=== PATIENT | female | born 1940 | race Caucasian/White ===

== ENCOUNTER 2018-02-14 05:42 | Day surgery (SDC) | payer MEDICARE, BC ==
[2018-02-14] VITALS (14 sets, daily range): BP systolic 112–140; BP diastolic 42–56
[~2018-02-14] VITALS: Ht 160 cm; Wt 72.8 kg
[2018-02-14] MEDS ORDERED: normal saline 1000ml 1,000 ML IV SCH (06:15)
[2018-02-14] MEDS ORDERED: LORazepam 0.5 MG tablet PO PRN (06:15)
[2018-02-14] MEDS ORDERED: diphenhydrAMINE 25mg capsule PO PRN (06:15)
[2018-02-14] MEDS ORDERED: occuvite PO (06:23)
[2018-02-14] MEDS ORDERED: CHOL100024 PO (06:23)
[2018-02-14] MEDS ORDERED: DONE5TAB7 PO (06:23)
[2018-02-14] MEDS ORDERED: CITA-278 PO (06:23)
[2018-02-14] MEDS ORDERED: gentle iron PO (06:23)
[2018-02-14] MEDS ORDERED: MULT-1085 PO (06:23)
[2018-02-14] MEDS ORDERED: TRAZ150T78 PO (06:23)
[2018-02-14] MEDS ORDERED: LORA-641 (06:23)
[2018-02-14] MEDS ORDERED: vitamin b12 PO (06:23)
[2018-02-14] MEDS ORDERED: ACET-1008 PO (06:23)
[2018-02-14] MEDS ORDERED: CLOP75TA15 PO (06:23)
[2018-02-14 06:47] LABS: BASOPHILS % (AUTO) 0.5 % (0-1); EOSINOPHILS # (AUTO) 0.2 X10'3 (0-0.9); EOSINOPHILS % (AUTO) 3.2 % (0-6); HEMATOCRIT 39.5 % (35.0-45.0); LYMPHOCYTES # (AUTO) 1.9 X10'3 (1.1-4.8); LYMPHOCYTES % (AUTO) 30.5 % (21-51); MEAN CORPUSCULAR HEMOGLOBIN 32.1 PG (27.0-31.0); MEAN CORPUSCULAR HGB CONC 32.9 % (33.0-36.5); MEAN CORPUSCULAR VOLUME 97.7 FL (78-98); MEAN PLATELET VOLUME 8.5 FL (7.4-10.4); MONOCYTES # (AUTO) 0.5 X10'3 (0-0.9); MONOCYTES % (AUTO) 8.1 % (2-12); NEUTROPHILS # (AUTO) 3.6 X10'3 (1.8-7.7); NEUTROPHILS % (AUTO) 57.7 % (42-75); PLATELET COUNT 262 X10'3 (140-440); RED BLOOD COUNT 4.05 X10'6 (4.20-5.60); RED CELL DISTRIBUTION WIDTH 14.2 % (11.5-14.5); WHITE BLOOD COUNT 6.3 X10'3 (4.5-11.0)
[2018-02-14 07:00] LABS: ALBUMIN 3.7 G/DL (3.4-5.0); ANION GAP 10 (8-16); BLOOD UREA NITROGEN 18 MG/DL (7-18); BUN/CREATININE RATIO 18.9 (6.6-38.0); CALCIUM 9.4 MG/DL (8.5-10.1); CHLORIDE 105 MMOL/L (99-107); CREATININE 0.95 MG/DL (0.40-0.90); GLUCOSE 85 MG/DL (70-104); POTASSIUM 3.8 MMOL/L (3.5-5.1); SODIUM 144 MMOL/L (135-145); TOTAL CARBON DIOXIDE 28.6 MMOL/L (24-32); eGFR 57 ML/MIN
[2018-02-14 07:02] LABS: INR 0.9 INR; PARTIAL THROMBOPLASTIN TIME 26 SECONDS (22-32); PROTHROMBIN TIME 9.3 SECONDS (9.0-12.0)
[2018-02-14] MEDS ORDERED: fentaNYL/PF 50MCG/1 ML 2ML syringe ONE (07:38)
[2018-02-14] MEDS ORDERED: midazolam 2 mg/2 ml injection ONE (07:38)
[2018-02-14] MEDS ORDERED: nitroGLYCERIN-Tridil 50MG/D5W 250 ML IV ONE (07:38)
[2018-02-14] MEDS ORDERED: LIDOcaine 1% (10mg/ml)w/preservative injection 20ml MDV ONE (07:39)
[2018-02-14] MEDS ORDERED: iohexol 350 MG/ML 50ML vial IV ONE (07:39)
[2018-02-14] MEDS ORDERED: heparin 1,000unit/ml 10ml vial 10 ML ONE (07:39)
[2018-02-14] MEDS ORDERED: iohexol 350MG/ML 100ml bottle IV ONE (07:39)
== END 2018-02-14 12:55 | disposition home or self-care (01) ==
LOC: SSTAY O 05:42
PROVIDERS: ATTEND Internal Medicine Cardiovascular Disease
DX: I25.10 Atherosclerotic heart disease of native coronary artery without angina pectoris (principal); E78.5 Hyperlipidemia, unspecified; I10 Essential (primary) hypertension; M47.819 Spondylosis without myelopathy or radiculopathy, site unspecified; M19.90 Unspecified osteoarthritis, unspecified site; F32.9 Major depressive disorder, single episode, unspecified; F41.8 Other specified anxiety disorders; Z86.69 Personal history of other diseases of the nervous system and sense organs; Z72.89 Other problems related to lifestyle; Z90.49 Acquired absence of other specified parts of digestive tract; Z88.6 Allergy status to analgesic agent; Z79.891 Long term (current) use of opiate analgesic; Z79.01 Long term (current) use of anticoagulants; Z90.710 Acquired absence of both cervix and uterus; Z79.899 Other long term (current) drug therapy; Z88.8 Allergy status to other drugs, medicaments and biological substances; Z98.890 Other specified postprocedural states; Z82.49 Family history of ischemic heart disease and other diseases of the circulatory system
CPT/HCPCS: 36415; 80048; 85025; 85610; 85730; 93005; 93458; 99152; A6257; C1760; J1644; J2001; J2250; J3010; J7030; Q0163; Q9967; A4620; C1769; J3490